=== PATIENT | male | born 1985 | race Caucasian/White ===

== ENCOUNTER 2017-09-29 09:28 | Emergency (ER) | payer OTHER ==
[2017-09-29 09:48] VITALS: PULSE 80; O2SAT 97
[2017-09-29] MEDS ORDERED: Ativan 2 MG/1 ML VIAL IV ONE (09:53)
[2017-09-29] MEDS ORDERED: Sodium Chloride 0.9% 1000 ML 1,000 ML IV STA (09:53)
--- NOTE | 2017-09-29 09:59 | ERPHSYRPT ---
- History of Present Illness Time Seen by Provider: 09/29/17 09:48 Source: patient Exam Limitations: no limitations Patient Subjective Stated Complaint: states is having anxiety over several months increasing in intensity over the past few days. hx of schizophrenia and sees a therapist. saw him last month and was put on zoloft but states he hasn' t taken it for three days. states is hearing voices and feels like his heart is tingling. arms numb Triage Nursing Assessment: ambulated to room per self. skin w/d, color normal, resp nonlabored. hands tremoring. voice shaky at times. Physician History: Pt has been diagnosed with Schizophrenia, takes Neurontin and Cogentin. He woke up with "anxiety", feels shaky, c/o palpitations, numbness in hands this morning , and hearing voices for a "while". He denies being suicidal, denies severe headaches, vomiting, chest pain, diaphoresis, shortness of breath or other complaints, denies being suicidal or homicidal. Timing/Duration: today Severity of Symptoms-Max: severe Severity of Symptoms-Current: severe Context related to: other (none) Associated Symptoms: anxiety Previous symptoms: same symptoms as today Allergies/Adverse Reactions: fluoxetine HCl [From AirgainzaCypherWorX] Allergy (Verified 09/29/17 09:35) Home Medications: Sertraline HCl 50 mg [Zoloft 50 mg Tablet] 50 mg PO DAILY 10/11/14 [History] Albuterol Sulfate [Albuterol Sulfate Hfa] 7 gm IH UD 09/29/17 [History] Gabapentin [Gralise] 300 mg PO TID 09/29/17 [History] Hx Tetanus, Diphtheria Vaccination/Date Given: Yes Hx Influenza Vaccination/Date Given: No Hx Pneumococcal Vaccination/Date Given: No - Past Medical History Pertinent Past Medical History: Yes Cardiac History: Hypertension Psycho-Social History: Anxiety, Depression - Past Surgical History Past Surgical History: Yes Other Surgical History: FOREIGN BODY--RT LEG SURGERY - Social History Smoking Status: Current every day smoker How long have you smoked: 10 Exposure to second hand smoke: Yes Drug Use: marijuana Patient Lives Alone: No - Review of Systems Constitutional: No Symptoms Cardiac: Palpitations Psychological: Anxiety, Hallucinations, No Alcohol Abuse, No Drug Abuse, No Suicidal Ideations, No Homicidal Ideations All Other Systems: Reviewed and Negative - Nursing Vital Signs Nursing Vital Signs: Initial Vital Signs Temperature 98.4 F 09/29/17 09:37 Pulse Rate 80 09/29/17 09:37 Respiratory Rate 18 09/29/17 09:37 Blood Pressure 150/99 09/29/17 09:37 O2 Sat by Pulse Oximetry 97 09/29/17 09:37 Pain Scale Pain Intensity 0 - Physical Exam General Appearance: no apparent distress Eyes, Ears, Nose, Throat Exam: normal ENT inspection, moist mucous membranes Neck Exam: normal inspection, non-tender, supple, No carotid bruit, No JVD Respiratory Exam: normal breath sounds, lungs clear, No chest tenderness Cardiovascular Exam: regular rate/rhythm, normal heart sounds, normal peripheral pulses, murmur Gastrointestinal/Abdominal Exam: soft, normal bowel sounds, No tenderness, No distention, No mass, No guarding, No rebound, No organomegaly Current Suicidality: denies suicide plan Neurological Exam: alert, normal mood/affect, oriented x 3 Appearance: appropriate appearance, no memory impairment Behavior/Eye Contact/Speech: alert & cooperative Thoughts/Hallucinations: normal thought pattern, no apparent hallucination, No delusions Skin Exam: normal color, warm, dry, No rash SpO2 Interpretation: normal SpO2: 97 Oxygen Delivery: Room Air - Course Nursing assessment & vital signs reviewed: Yes Ordered Tests: Active Orders 24 hr Category Date Time Status Rubber Roller Grinder STAT Care 09/29/17 09:54 Active EKG-ER Only STAT Care 09/29/17 09:53 Active ACETAMINOPHEN Stat Lab 09/29/17 09:53 Ordered CBC W DIFF Stat Lab 09/29/17 09:53 Ordered CK-Creatinine Phosphokinase Stat Lab 09/29/17 09:55 Ordered CMP Stat Lab 09/29/17 09:53 Ordered ETHYL ALCOHOL Stat Lab 09/29/17 09:53 Ordered SALICYLATE Stat Lab 09/29/17 09:53 Ordered TROPONIN Q3H Lab 09/29/17 10:00 Ordered TROPONIN Q3H Lab 09/29/17 13:00 Ordered TROPONIN Q3H Lab 09/29/17 16:00 Ordered TROPONIN Q3H Lab 09/29/17 19:00 Ordered TROPONIN Q3H Lab 09/29/17 22:00 Ordered TSH [TSH, 3RD Generation] Stat Lab 09/29/17 09:55 Ordered TSH, 3RD Generation Stat Lab 09/29/17 09:53 Ordered UA W/RFX UR CULTURE Stat Lab 09/29/17 09:54 Uncollected Urine Triage Profile Stat Lab 09/29/17 09:54 Uncollected Medication Summary Generic Name Dose Route Start Last Admin Trade Name Freq PRN Reason Stop Dose Admin Sodium Chloride 1,000 mls @ 999 mls/hr 09/29/17 09:53 Sodium Chloride 0.9% 1000 Ml IV 09/29/17 10:53 .Q1H1M STA Discontinued Medications Generic Name Dose Route Start Last Admin Trade Name Freq PRN Reason Stop Dose Admin Lorazepam 0.5 mg 09/29/17 09:53 Ativan 2 Mg/1 Ml Vial IV 09/29/17 09:54 STAT ONE - Progress Progress: unchanged Progress Note: 09/29/17 10:24 Pt is not in any distress, he is calm, not agitated, I ordered tests, he states , he just wants some medicine " to calm me down". He reused blood and urine tests, and Ekg, he wants to leave AMA, and follow up with his counselor, he is alert and oriented x4, mentally competent. Counseled pt/family regarding: diagnosis, need for follow-up - Departure Time of Disposition: 10:26 Departure Disposition: AMA Clinical Impression: Anxiety Condition: Stable Critical Care Time: No Instructions: Anxiety, Adult (DC) Additional Instructions: Follow up with your physician and counselor, return if severe anxiety, becoming severely depressed, suicidal!
[2017-09-29 10:27] VITALS: BP 137/84
[2017-09-29 10:35] LABS: BASOPHIL % 0.2 % (0.0-0.4); Basophil (Absolute #) 0.02 (0-0.4); Eosinophil % 1.8 % (0.00-5.0); Eosinophil (Absolute #) 0.15 (0-0.5); Granulocyte Absolute (ANC) 5.72 (1.4-6.9); Granulocytes % 70.6 % (36.0-66.0); Hemoglobin 16.4 gm/dl (12.5-18.0); Lymphocyte (Absolute #) 1.57 (1.0-4.6); Lymphocytes % 19.4 % (24.0-44.0); Mean Cell Volume 88.1 fl (78-100); Mean Corpuscular Hemoglobin 30.1 pg (26-32); Mean Corpuscular Hgb Concent. 34.2 g/dl (32-36); Mean Platelet Volume 10.6 fl (6-9.5); Monocyte (Absolute #) 0.65 (0.0-1.3); Platelet Count 236 K/mm3 (150-450); Red Blood Count 5.45 M/mm3 (4.1-5.6); Red Cell Distribution Width 14.9 % (11.5-14.0); White Blood Count 8.1 K/mm3 (4.0-10.5)
[2017-09-29 10:51] LABS: ACETAMINOPHEN < 10 ug/ml (10-30); ALBUMIN 4.3 g/dL (3.5-5.0); ALKALINE PHOSPHATASE 78 U/L (38-126); ANION GAP 13.2 MEQ/L (5-15); BLOOD UREA NITROGEN 13 mg/dL (9-20); CHLORIDE 105 mmol/L (98-107); CK-Creatinine Phosphokinase 80 U/L (55-170); Calcium 9.4 mg/dL (8.4-10.2); Carbon Dioxide 26 mmol/L (22-30); Creatinine 1 0.77 mg/dL (0.66-1.25); ETHYL ALCOHOL < 10 mg/dL (0-10); Glucose 100 mg/dL (74-106); Potassium 4.1 mmol/L (3.5-5.1); SALICYLATE < 1.0 mg/dL (2-20); SGOT/AST 17 U/L (17-59); SGPT/ALT 16 U/L (0-50); SODIUM 141 mmol/L (137-145); Total Protein 7.3 g/dL (6.3-8.2)
[2017-09-29 11:04] LABS: TROPONIN < 0.012 ng/mL (0.000-0.034)
[2017-09-29 11:21] LABS: TSH, 3RD Generation 0.952 mIU/L (0.47-4.68)
== END 2017-09-29 10:37 | disposition left against medical advice (07) ==
LOC: ED 09:28
DX: F41.9 Anxiety disorder, unspecified (principal); R00.2 Palpitations; F20.9 Schizophrenia, unspecified; Z79.899 Other long term (current) drug therapy
CPT/HCPCS: 36000; 36415; 80053; 80307; 82550; 84443; 84484; 85025; 99284; G0481; G0480

== ENCOUNTER 2023-06-27 00:29 | Emergency (ER) | payer OTHER ==
[2023-06-27 00:35] VITALS: TEMP 98.3
[2023-06-27] MEDS ORDERED: Zofran 4 MG/2 ML VIAL ONE (00:49)
[2023-06-27] MEDS ORDERED: TORAdol 30 mg Injection ONE (00:49)
[2023-06-27] MEDS ORDERED: Sodium Chloride 0.9% 1000 ML 1,000 ML ONE (00:50)
[2023-06-27] MEDS ORDERED: MORPHINE SULFATE 4 MG INJ ONE (00:50)
[2023-06-27] MEDS: TORAdol 30 mg Injection IV ONE (00:58)
[2023-06-27] MEDS: MORPHINE SULFATE 4 MG INJ IV ONE (00:58)
[2023-06-27] MEDS: Zofran 4 MG/2 ML VIAL IV ONE (00:58)
[2023-06-27] MEDS: Sodium Chloride 0.9% 1000 ML 1,000 ML IV STA (00:59)
[2023-06-27 01:09] LABS: Absolute Neutrophil Ct (ANC) 8.73 x10^3/uL (1.4-6.9); BASOPHIL % 0.5 % (0.0-0.4); Basophil (Absolute #) 0.06 x10^3/uL (0-0.4); Eosinophil (Absolute #) 0.25 x10^3/uL (0-0.5); Hematocrit 47.2 % (42-50); Hemoglobin 15.9 g/dL (12.5-18.0); IMMATURE GRAN # 0.04 x10^3u/L (0.00-0.03); IMMATURE GRAN % 0.3 % (0.00-0.4); Lymphocyte (Absolute #) 2.27 x10^3/uL (1.0-4.6); Lymphocytes % 18.6 % (24.0-44.0); Mean Cell Volume 90.1 fL (78-100); Mean Corpuscular Hemoglobin 30.3 pg (26-32); Mean Corpuscular Hgb Concent. 33.7 g/dL (32-36); Mean Platelet Volume 10.4 fL (7.5-11.0); Monocyte (Absolute #) 0.88 x10^3/uL (0.0-1.3); Monocytes % 7.2 % (0.0-12.0); Neutrophil % 71.4 % (36.0-66.0); Platelet Count 267 x10^3/uL (150-450); Red Blood Count 5.24 x10^6/uL (4.1-5.6); Red Cell Distribution Width 14.9 % (11.5-14.0); White Blood Count 12.2 x10^3/uL (4.0-10.5)
[2023-06-27 01:22] LABS: ALBUMIN 4.2 g/dL (3.5-5.0); ANION GAP 10.3 MEQ/L (5-15); BILIRUBIN,TOTAL 0.4 mg/dL (0.2-1.3); Calcium 9.2 mg/dL (8.4-10.2); Creatinine 1 0.93 mg/dL (0.66-1.25); EST GLOMERULAR FILTRATION RATE 109.8 ML/MIN; Potassium 4.1 mmol/L (3.5-5.1); Total Protein 7.1 g/dL (6.3-8.2)
[2023-06-27 02:25] VITALS: RESP 16; O2SAT 95
--- NOTE | 2023-06-27 02:44 | ERPHSYRPT ---
- History of Present Illness Time Seen by Provider: 06/27/23 00:31 Historian: patient Exam Limitations: no limitations Patient Subjective Stated Complaint: testical pain and back pain Triage Nursing Assessment: 37 yr old male pt arrives to ED via [facility]. Pt presents with complaints of testicle and back pain. Pt reports that his testicles have been hurting on and off for 6 months and that he just saw a doctor for it and they "didn't tell him anything. Pt reports that his lower back just started hurting prior to calling 911. Pt states, "I think it's my kidneys". pt denies any hx of kidney or urinary issues. There is no swelling to testicles but pt reports that he can "feel a knot in there". Pt is rating pain as a "20". Pt denies any injuries. Pt is also reporting that he smoked a THC vape today and he wonders if he could be having a "reaction" to that. Pt is alert and oriented. Physician History: 37-year-old male presented in the ER with complains of right lower back/right lower quadrant and right testicular pain worsening tonight. Patient reports having off-and-on this pain for quite some time. Denies any urinary complaints. Reports associated nausea but no vomiting. Pain is moderate to severe sharp in the testicles and lower back. No history of kidney stones. No fever or chills reported. Allergies/Adverse Reactions: fluoxetine HCl [From Prozac] Allergy (Verified 06/27/23 00:33) Home Medications: Sertraline HCl 50 mg [Zoloft 50 mg Tablet] 50 mg PO DAILY 10/11/14 [History] Albuterol Sulfate [Albuterol Sulfate Hfa] 7 gm IH UD 09/29/17 [History] Gabapentin [Gralise] 300 mg PO TID 09/29/17 [History] Hx Tetanus, Diphtheria Vaccination/Date Given: No Hx Influenza Vaccination/Date Given: No Hx Pneumococcal Vaccination/Date Given: No Travel Risk - International Travel Have you traveled outside of the country in past 3 weeks: No - Emerging Infectious Disease Are you exhibiting symptoms associated with any current EIDs: No - Review of Systems Constitutional: No Symptoms Ears, Nose, & Throat: No Symptoms Respiratory: No Symptoms Cardiac: No Symptoms Abdominal/Gastrointestinal: Abdominal Pain, Nausea Genitourinary Symptoms: Testicle Pain Musculoskeletal: No Symptoms Skin: No Symptoms Neurological: No Symptoms Psychological: No Symptoms Endocrine: No Symptoms Hematologic/Lymphatic: No Symptoms - Past Medical History Pertinent Past Medical History: Yes Neurological History: No Pertinent History ENT History: No Pertinent History Cardiac History: Hypertension Respiratory History: No Pertinent History Endocrine Medical History: No Pertinent History Musculoskeletal History: No Pertinent History GI Medical History: No Pertinent History History: No Pertinent History Psycho-Social History: Anxiety, Depression Male Reproductive Disorders: No Pertinent History Other Medical History: social anxiety - Past Surgical History Past Surgical History: Yes Neuro Surgical History: No Pertinent History Cardiac: No Pertinent History Respiratory: No Pertinent History Gastrointestinal: No Pertinent History Genitourinary: No Pertinent History Musculoskeletal: Other Male Surgical History: No Pertinent History, Prostate Surgery Other Surgical History: leg (removal of wood) and lip surgery - Social History Smoking Status: Light tobacco smoker How long have you smoked: years Exposure to second hand smoke: No Drug Use: other Patient Lives Alone: No - Nursing Vital Signs Nursing Vital Signs: Initial Vital Signs Temperature 98.3 F 06/27/23 00:29 Pulse Rate 85 06/27/23 00:29 Respiratory Rate 20 06/27/23 00:29 Blood Pressure 147/96 06/27/23 00:29 O2 Sat by Pulse Oximetry 96 06/27/23 00:29 Pain Scale Pain Intensity 8 - Physical Exam General Appearance: no apparent distress Eye Exam: PERRL/EOMI Neck Exam: normal inspection, supple, full range of motion Respiratory Exam: normal breath sounds, lungs clear Cardiovascular Exam: regular rate/rhythm, normal heart sounds, normal peripheral pulses Gastrointestinal/Abdomen Exam: soft, normal bowel sounds, tenderness (Right lower quadrant/right groin with positive right CVA tenderness.) Male Genitalia Exam: normal genitalia, testicular tenderness (Right with no swelling. No cord tenderness.) Back Exam: normal inspection, normal range of motion, CVA tenderness Extremity Exam: normal inspection, normal range of motion Neurologic Exam: alert, oriented x 3, cooperative Skin Exam: normal color SpO2 Interpretation: normal SpO2: 95 O2 Delivery: Room Air Ordered Tests: Active Orders 24 hr Category Date Time Status IV Insertion STAT Care 06/27/23 00:44 Active NPO (ED) STAT Care 06/27/23 00:44 Active ABDOMEN AND PELVIS W/0 CONTRAS [CT] Stat Exams 06/27/23 00:45 Completed TESTICLE [US] Stat Exams 06/27/23 00:46 Taken CBC W DIFF Stat Lab 06/27/23 01:07 Completed CMP Stat Lab 06/27/23 01:07 Completed CULTURE,URINE Stat Lab 06/27/23 03:34 Received UA W/RFX UR CULTURE Stat Lab 06/27/23 03:34 Completed Medication Summary Discontinued Medications Generic Name Dose Route Start Last Admin Trade Name Vane PRN Reason Stop Dose Admin Sodium Chloride 1,000 mls @ 999 mls/hr 06/27/23 00:44 06/27/23 02:03 Sodium Chloride 0.9% 1000 Ml IV 06/27/23 01:44 Infused .Q1H1M STA Infusion Sodium Chloride Confirm 06/27/23 00:50 Sodium Chloride 0.9% 1000 Ml Administered 06/27/23 00:51 Dose 1,000 mls @ ud .ROUTE .STK-MED ONE Ketorolac Tromethamine 30 mg 06/27/23 00:44 06/27/23 00:58 Ketorolac Tromethamine 30 Mg/Ml Inj IV 06/27/23 00:45 30 mg STAT ONE Administration Ketorolac Tromethamine Confirm 06/27/23 00:49 Ketorolac Tromethamine 30 Mg/Ml Inj Administered 06/27/23 00:50 Dose 30 mg .ROUTE .STK-MED ONE Levofloxacin Confirm 06/27/23 04:05 Levofloxacin 500 Mg Tablet Administered 06/27/23 04:06 Dose 500 mg .ROUTE .STK-MED ONE Levofloxacin 500 mg 06/27/23 04:04 06/27/23 04:14 Levofloxacin 500 Mg Tablet PO 06/27/23 04:05 500 mg STAT ONE Administration Morphine Sulfate 4 mg 06/27/23 00:44 06/27/23 00:58 Morphine Sulfate 4 Mg/Ml Injection IV 06/27/23 00:45 4 mg STAT ONE Administration Morphine Sulfate Confirm 06/27/23 00:50 Morphine Sulfate 4 Mg/Ml Injection Administered 06/27/23 00:51 Dose 4 mg .ROUTE .STK-MED ONE Ondansetron HCl 4 mg 06/27/23 00:44 06/27/23 00:58 Ondansetron Hcl 4 Mg/2 Ml Vial IV 06/27/23 00:45 4 mg STAT ONE Administration Ondansetron HCl Confirm 06/27/23 00:49 Ondansetron Hcl 4 Mg/2 Ml Vial Administered 06/27/23 00:50 Dose 4 mg .ROUTE .STK-MED ONE Lab/Rad Data: Laboratory Result Diagrams 06/27/23 01:07 06/27/23 01:07 Laboratory Results 06/27/23 06/27/23 06/27/23 Range/Units 03:34 01:07 01:07 WBC 12.2 H (4.0-10.5) x10^3/uL RBC 5.24 (4.1-5.6) x10^6/uL Hgb 15.9 (12.5-18.0) g/dL Hct 47.2 (42-50) % MCV 90.1 (78-100) fL MCH 30.3 (26-32) pg MCHC 33.7 (32-36) g/dL RDW 14.9 H (11.5-14.0) % Plt Count 267 (150-450) x10^3/uL MPV 10.4 (7.5-11.0) fL Gran % 71.4 H (36.0-66.0) % Immature Gran % (Auto) 0.3 (0.00-0.4) % Nucleat RBC Rel Count 0.0 (0.00-0.1) % Eos # (Auto) 0.25 (0-0.5) x10^3/uL Immature Gran # (Auto) 0.04 H (0.00-0.03) x10^3u/L Absolute Lymphs (auto) 2.27 (1.0-4.6) x10^3/uL Absolute Monos (auto) 0.88 (0.0-1.3) x10^3/uL Absolute Nucleated RBC 0.00 (0.00-0.01) x10^3u/L Lymphocytes % 18.6 L (24.0-44.0) % Monocytes % 7.2 (0.0-12.0) % Eosinophils % 2.0 (0.00-5.0) % Basophils % 0.5 (0.0-0.4) % Absolute Granulocytes 8.73 H (1.4-6.9) x10^3/uL Basophils # 0.06 (0-0.4) x10^3/uL Sodium 136 (135-145) mmol/L Potassium 4.1 (3.5-5.1) mmol/L Chloride 105 (98-107) mmol/L Carbon Dioxide 24 (22-30) mmol/L Anion Gap 10.3 (5-15) MEQ/L BUN 19 (9-20) mg/dL Creatinine 0.93 (0.66-1.25) mg/dL Estimated GFR 109.8 ML/MIN Glucose 107 H (74-106) mg/dL Calcium 9.2 (8.4-10.2) mg/dL Total Bilirubin 0.40 (0.2-1.3) mg/dL AST 21 (17-59) U/L ALT 16 (0-50) U/L Alkaline Phosphatase 77 (38-126) U/L Serum Total Protein 7.1 (6.3-8.2) g/dL Albumin 4.2 (3.5-5.0) g/dL Urine Color Dark Yellow (Yellow) Urine Appearance Clear (Clear) Urine pH 5.5 (4.6-8.0) Ur Specific [place] >=1.030 A (1.005-1.030) Urine Protein Trace A (Negative) Urine Glucose (UA) Negative (Negative) mg/dL Urine Ketones Negative (Negative) Urine Blood Large A (Negative) Urine Nitrite Negative (Negative) Urine Bilirubin Negative (Negative) Urine Urobilinogen 1.0 A (0.2) mg/dL Ur Leukocyte Esterase Negative (Negative) U Hyaline Cast (Auto) 3-5 A (0-2) /LPF Urine Microscopic RBC 6-10 A (0-5) /HPF Urine Microscopic WBC 0-2 (0-5) /HPF Ur Epithelial Cells None Seen (None Seen) /HPF Urine Bacteria None Seen (None Seen) /HPF Urine Culture Reflexed YES (NO) - Progress Progress: improved Progress Note: 06/27/23 04:15 37-year-old is evaluated in the ER for right lower back/right lower quadrant and right testicular pain. Given symptomatic treatment for pain,. On reevaluation feeling much better. Ruled out testicular torsion per preliminary report of ultrasound, official report is pending. white count 12, fairly unremarkable chemistries, does have UTI and given a dose of Levaquin, will continue with Cipro to go home. CT abdomen pelvis is negative for stone, acute appendicitis, obstruction, perforation, colitis. Does have cholelithiasis but patient does not have any right upper quadrant tenderness. Also no CT evidence of acute cholecystitis. Recommended taking Tylenol ibuprofen as needed, scrotal support and outpatient follow-up. Discussed signs symptoms of worsening needing return to ER which she seems understanding. 06/27/23 04:22 Counseled pt/family regarding: lab results, diagnosis, need for follow-up, rad results Medical Desision Making - Diagnostic Testing Diagnostic test were ordered, analyzed, and reviewed by me: Yes Radiological Interpretation: Reviewed by me, Teleradiologist Report - Risk of complications The pt has a mod risk of morbidity or mortality based on: Need for prescription drug management - Departure Departure Disposition: Home Clinical Impression: Acute UTI (urinary tract infection), Right flank pain, Testicular pain, right Condition: Stable Critical Care Time: No Referrals: DOCTOR,NO FAMILY [Primary Care Provider] - Follow up with PCP 1 day Instructions: Severe Abdominal Pain, Adult (DC) Additional Instructions: Take Tylenol/ibuprofen as needed. Use scrotal support. Follow-up with primary care for reevaluation in 1 to 2 days. Return to ER for any worsening. Prescriptions: Ibuprofen 600 mg PO Q6HPRN PRN 10 Days #20 tablet PRN Reason: Pain Ciprofloxacin [Cipro 500 MG] 500 mg PO BID #14 tablet
--- NOTE | 2023-06-27 02:48 | XRAY ---
CLINICAL HISTORY: right lower back/RLQ/TESTICULAR GILMER COMPARISON: None. TECHNIQUE: Axial sections of CT abdomen and pelvis were obtained without administration of intravenous contrast. Reformatted coronal and sagittal images were acquired. One of the following dose reduction techniques were utilized for this exam: Automated exposure control, adjustment of the mA and/or kV according to patient size, and use of iterative reconstruction. FINDINGS: Multiple gallstones are identified. No definite evidence of acute cholecystitis. Clinical and sonographic correlation is advised. The liver is normal in size. No discrete focal hepatic lesion seen. No evidence of intrahepatic biliary dilatation. The spleen, pancreas and bilateral adrenal glands appear unremarkable. Both kidneys are normal in size and shape. No renal calculus or obstructive uropathy. A tiny calcific density is seen in the region of the right upper ureter, likely vascular calcification rather than ureteric calculus. The urinary bladder is normally distended. The prostate is normal in size. Prostatic calcification seen. Visualized large and small bowel loops appear unremarkable. The stomach is normally distended. Visualized large and small bowel loops appear unremarkable. The appendix is separately visualized. No definite evidence of acute appendicitis. The stomach is normally distended. No ascites or pneumoperitoneum. No significant abdominal or pelvic lymphadenopathy. Bilateral subsegmental atelectatic changes. A bilobed nodular density measuring approximately 4.5 mm in the left lung base. Mild spondylotic changes in the visualized spine. IMPRESSION: 1. Cholelithiasis without CT evidence of acute cholecystitis. If indicated, sonographic correlation would be helpful. 2. Appendix is unremarkable. Electronically Signed by: Mario Rosado MD. (06/27/2023 02:42:40 EDT)
[2023-06-27 03:43] LABS: Appearance Clear (Clear); Bacteria None Seen /HPF (None Seen); Bilirubin Negative (Negative); Blood Large (Negative); Epithelial Cells None Seen /HPF (None Seen); Glucose, Urine Negative (Negative); Ketones Negative (Negative); Leukocyte Esterase Negative (Negative); Nitrite Negative (Negative); Ph 5.5 (4.6-8.0); Protein,Urine Dip Trace (Negative); Specific Gravity >=1.030 (1.005-1.030); WBC 0-2 /HPF (0-5)
[2023-06-27 03:47] LABS: ADD URINE CULTURE? YES (NO)
[2023-06-27] MEDS ORDERED: Levofloxacin 500 MG Tablet ONE (04:05)
[2023-06-27] MEDS: Levofloxacin 500 MG Tablet PO ONE (04:14)
[2023-06-27 04:20] VITALS: BP 127/80; PULSE 82
--- NOTE | 2023-06-27 08:48 | XRAY ---
Indication: Right testicle pain. Two-dimensional testicular sonogram performed. Comparison: None Both testicles are homogeneous in echogenicity. Right testicle measures 3.8 x 2.4 x 2.5 cm and left measures 3.9 x 2.5 x 2.1 cm. Both testicles demonstrates mild increased color Doppler flow, possible orchitis in right clinical setting. 4 mm right and 3 mm left testicle tunica albuginea cysts. Left epididymis also demonstrates 7 mm cyst. Right epididymis sonographically unremarkable. No suspicious extratesticular mass or hydrocele. Impression: 1. Increased color Doppler flow in both testicles. Rule out orchitis. 2. Incidental bilateral tunica albuginea cysts and left epididymal cyst. Comment: Preliminary report was given.
== END 2023-06-27 04:39 | disposition home or self-care (01) ==
LOC: ED 00:29
DX: N39.0 Urinary tract infection, site not specified (principal); R10.9 Unspecified abdominal pain; N50.811 Right testicular pain; M54.50 Low back pain, unspecified; R11.0 Nausea; I10 Essential (primary) hypertension; Z79.899 Other long term (current) drug therapy; Z72.0 Tobacco use
CPT/HCPCS: 36415; 74176; 76870; 80053; 81001; 85025; 87086; 96374; 96375; 99284; J1885; J2270; J2405; A9270-GY